=== PATIENT | male | born 2000 | race Caucasian/White ===

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

== ENCOUNTER → 2023-03-10 11:38 | Outpatient (BNVA) | payer BC, SELFPAY | PROVIDERS: Visit Provider Nurse Practitioner | DX: Z02.83 Encounter for blood-alcohol and blood-drug test (principal) | CPT/HCPCS: 80306 ==

== ENCOUNTER 2025-02-18 21:29 | Emergency (ER) | payer BC, SELFPAY ==
[2025-02-18 21:31] VITALS: BP 130/78; PULSE 74; RESP 18; TEMP 36.8; O2SAT 96; BMI 37.1
--- NOTE | 2025-02-18 21:42 | XRR_ITS ---
PROCEDURE INFORMATION: Exam: XR Chest Exam date and time: 02/18/2025 9:52 PM Age: 24 years old Clinical indication: Pain; Chest pressure; Additional info: Chest pain TECHNIQUE: Imaging protocol: Radiologic exam of the chest. Views: 1 view. COMPARISON: No relevant prior studies available. FINDINGS: Lungs: Unremarkable. No consolidation. Pleural spaces: Unremarkable. No pleural effusion. No pneumothorax. Heart/Mediastinum: Unremarkable. No cardiomegaly. Bones/joints: Old left clavicle fracture. XR/XR chest 1V portable [id number] IMPRESSION: No acute findings.
--- NOTE | 2025-02-18 21:46 | ECG_ITS ---
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
--- NOTE | 2025-02-18 21:47 | PC.NURSE ---
EKG obtained in triage did not save into EKG machine.
[2025-02-18 21:49] VITALS: BP 134/85; PULSE 73; RESP 16; O2SAT 98
[2025-02-18 21:55] LABS: Basophils % 0.4 %; Eosinophils # 0.1 10^3/uL (0.0-0.8); Hematocrit 45.5 % (37-53); Lymphocytes # 3.9 10^3/uL (0.8-4.8); Lymphocytes % 34.5 %; Mean Corpuscular HGB Conc 32.7 g/dL (30-55); Mean Corpuscular Hemoglobin 28.2 pg (27-33); Mean Corpuscular Volume 86.2 fl (82-101); Mean Platelet Volume 9.8 fL (7.4-10.4); Monocytes # 1.3 10^3/uL (0.2-0.9); Monocytes % 11.3 %; Neutrophils # 5.91 10^3/uL (1.8-7.7); Neutrophils % 52.5 %; Nucleated Red Blood Cells % 0 %; Platelet Count 459 10^3/cmm (157-399); Red Blood Count 5.28 10^6/uL (3.85-5.65); Red Cell Distribution Width 14.1 % (12.1-15.1); White Blood Count 11.24 10^3/uL (3.29-11.43)
--- NOTE | 2025-02-18 21:56 | ED_ITS ---
HPI - Chest Pain 2 General: Chief Complaint: Chest Pain Stated Complaint: CP SOB L Arm numb N Time Seen by Provider: 02/18/25 21:42 History of Present Illness: Patient is a 24-year-old gentleman with history of hypertension, compliant to amlodipine, that presented to ED due to chest pain. This occurred earlier today as well, and patient was seen at [facility], and improved with nitroglycerin at facility. This is associated with shortness of breath. There is no nausea, or vomiting. He has had 324 mg of aspirin today. Patient does not have early heart disease in his family history, however dad has history of thrombosis of unknown origin. 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 No recent surgery, no oncological issues. Associated symptoms: Deny abdominal pain, dyspnea, fever(s), nausea, palpitations or vomiting Related Data Previous Rx's ?Medication ?Instructions ?Recorded dextroamphetamine-amphetamine ER 15 mg PO DAILY 30 day s #30 caps 05/23/23 15 mg 24hr capsule,extend release (Adderall XR) dextroamphetamine-amphetamine ER 15 mg PO DAILY 30 day s #30 caps 07/10/23 15 mg 24hr capsule,extend release (Adderall XR) sertraline 100 mg tablet (Zoloft) 100 mg PO DAILY #30 tabs 07/10/23 trazodone 100 mg tablet 100 mg PO .HS #30 tabs 07/10 Allergies Allergy/AdvReac Type Severity Reaction Status Date / Time No Known Allergies Allergy Unverified 05/23/23 14:52 Review of Systems 2 General: Reports: 10 or more systems reviewed and unremarkable except in HPI and below Const: Denies: fever(s), chills, fatigue or malaise Card: Reports: chest pain; Denies: palpitations, lightheadedness or leg pain with exertion (right ankle injury 1 month ago) Resp: Denies: dyspnea or productive cough GI: Denies: abdominal pain, nausea or vomiting : Denies: flank pain or difficulty urinating Musc: Denies: neck pain, back pain, extremity pain or muscle cramps Skin/Breast: Denies: rash or pruritus Neuro: Denies: headache(s) or numbness in extremities Psych: Denies: anxiety or depression Endo: Denies: polydipsia or tired all the time Abdirahman/Lymph: Reports: easy bleeding; Denies: easy bruising PFSH ED 2 PFSH: Medical History ADHD, predominantly inattentive type Major depressive disorder, recurrent, moderate Generalized anxiety disorder Insomnia Vapes nicotine containing substance Physical Exam 2 Const: COMMON NORMALS: patient oriented x3 HENMT: COMMON NORMALS: normocephalic and atraumatic HEAD & SCALP: n ormocephalic and atraumatic Chest: COMMONS NORMALS: normal inspection of the chest CHEST: Yes Symmetrical chest wall rise and No tenderness Resp: COMMON NORMALS: normal respiratory effort and clear to auscultation bilaterally EFFORT & INSPECTION: Yes able to speak in complete sentences and No abnormal respiratory pattern AUSCULTATION: clear to auscultation bilaterally Cardio: COMMON NORMALS: regular rate, regular rhythm, S1 normal heart sound present, S2 normal heart sound present and Peripheral pulses 2+ throughout R ATE: regular rate RHYTHM: regular rhythm HEART SOUNDS: S1 normal heart sound present, S2 normal heart sound present and Murmur heart sound present (3/6) systolic PERIPHERAL PULSES: Peripheral pulses 2+ throughout GI: COMMON NORMALS: Normal to inspection, nondistended, normoactive bowel sounds present, Soft to palpation and non-tender PALPATION: Yes Soft to palpation : COMMON NORMALS: Yes no CVA tenderness BLADDER/KIDNEY EXAM: Yes no CVA tenderness Back/Pelvis: COMMON NORMALS: no CVA tenderness Extremity: COMMON NORMALS: normal to inspection, full ROM and capillary refill normal Neuro: COMMON NORMALS: patient oriented x3 and CN's II-XII intact bilaterally Psych: COMMON NORMALS: mental status grossly normal Skin: COMMON NORMALS: no rashes or lesions noted and no wounds GENERAL SKIN EXAM: no rashes or lesions noted Course 2 Vital Signs: Vital signs: Vital Signs Temperature 98.2 F 02/18/25 21:31 Pulse Rate 66 02/18/25 23:35 Respiratory Rate 16 02/18/25 23:35 Blood Pressure 134/78 02/18/25 23:35 Pulse Oximetry 98 02/18/25 23:35 Oxygen Delivery Me thod Room Air 02/18/25 21:31 MDM - Chest Pain Medical Decision Making Patient is a 24-year-old male without cardiac history, that was seen earlier today at clinic for chest pain, and ruled out for acute etiology. He continued to have a sharp stabbing pain. He has risk factors for pulmonary embolism, however Wells PE score is 1. Will obtain a D-dimer initially, and see if this needs to be expanded to his CT of the chest. He does not have reproducible chest pain. No ischemic changes noted on initial EKG. Will obtain routine labs, and consider differentials including costochondritis, hypertension, although his blood pressure is not elevated on current vital signs, viral illness, however no complaints of recent illness or sick contact. EKG without any acute changes, initial workup is negative for acute changes, and D-dimer is negative. Discussed with patient, suspect association of costochondritis versus blood pressure, and factor of increased stress from work/school. Patient will be off for 1 week, follow DASH diet, continue his medications/amlodipine that is not on his profile, for which patient is compliant. He will return to ED for further issues. There is no need to write for nitroglycerin at this time, given very little concern for reversible ischemia at this time. Suspect that his chest pain improved with nitroglycerin since his blood pressure decreased. Lab Data 02/18/25 21:46 02/18/25 21:46 Radiology Impressions Chest X-Ray 02/18/25 21:42 IMPRESSION: No acute findings. Laboratory Results WBC 11.24 10^3/uL (3.29-11.43) 02/18/25 21:46 RBC 5.28 10^6/uL (3.85-5.65) 02/18/25 21:46 Hgb 14.90 g/dL (11.27-16.99) 02/18/25 21:46 Hct 45.5 % (37-53) 02/18/25 21:46 MCV 86.2 fl (82-101) 02/18/25 21:46 MCH 28.2 pg (27-33) 02/18/25 21:46 MCHC 32.7 g/dL (30-55) 02/18/25 21:46 RDW 14.1 % (12.1-15.1) 02/18/25 21:46 Plt Count 459 10^3/cmm (157-399) H 02/18/25 21:46 MPV 9.8 fL (7.4-10.4) 02/18/25 21:46 Neut % (Auto) 52.5 % 02/18/25 21:46 Lymph % (Auto) 34.5 % 02/18/25 21:46 [place] % (Auto) 11.3 % 02/18/25 21:46 Eos % (Auto) 1.0 % 02/18/25 21:46 Baso % (Auto) 0.4 % 02/18/25 21:46 Neut # (Auto) 5.91 10^3/uL (1.8-7.7) 02/18/25 21:46 Lymph # (Auto) 3.9 10^3/uL (0.8-4.8) 02/18/25 21:46 [place] # (Auto) 1.3 10^3/uL (0.2-0.9) H 02/18/25 21:46 Eos # (Auto) 0.1 10^3/uL (0.0-0.8) 02/18/25 21:46 Baso # (Auto) 0.0 10^3/uL (0.0-0.1) 02/18/25 21:46 Nucleated RBC % (auto) 0 % 02/18/25 21:46 Nucleated RBCs # 0.0 /100WBC 02/18/25 21:46 D-Dimer <= 0.27 ug/mLFEU (0-0.59) 02/18/25 21:46 Sodium 142 mmol/L (136-145) 02/18/25 21:46 Potassium 4.1 mmol/L (3.5-5.1) 02/18/25 21:46 Chloride 107 mmol/L (98-107) 02/18/25 21:46 Carbon Dioxide 22 mmol/L (22-29) 02/18/25 21:46 Anion Gap 17.1 (5-19) 02/18/25 21:46 BUN 12 mg/dL (6-20) 02/18/25 21:46 Creatinine 0.9 mg/dL (0.7-1.2) 02/18/25 21:46 GFR Calculation 105.5 mL/min (90-130) 02/18/25 21:46 Glucose 92 mg/dL (65-115) 02/18/25 21:46 Calculated Osmolality 293 mOsm/kg (285-295) 02/18/25 21:46 Calcium 9.3 mg/dL (8.5-10.5) 02/18/25 21:46 Total Bilirubin 0.3 mg/dL (0.15-1.2) 02/18/25 21:46 AST 49 U/L (0-40) H 02/18/25 21:46 ALT 36 U/L (0-41) 02/18/25 21:46 Alkaline Phosphatase 81 U/L (40-130) 02/18/25 21:46 Troponin T Baseline < 6 ng/L (0-15) 02/18/25 21:46 Troponin T 120 Minute < 6.0 ng/L (0-15) 02/18/25 23:25 Delta Troponin T 0 ABS# (0-10) 02/18/25 23: Total Protein 7.2 g/dL (6.6-8.7) 02/18/25 21:46 Albumin 4.4 g/dL (3.5-5.2) 02/18/25 21:46 Globulin 2.8 g/dL (1.3-4.6) 02/18/25 21:46 All radiology interpretation(s) finalized by discharge ED provider radiology interpretation(s): no acute EKG Data EKG 2: Interpretation: Normal sinus rhythm with rate of 59, QTc 382, left axis Computer generated interpretation: Sinus bradycardia, borderline EKG Discharge Plan Discharge Patient Disposition: Home Clinical Impression: Atypical chest pain Condition: Stable Prescriptions: No Action dextroamphetamine-amphetamine [Adderall XR] 15 mg capsule,extended release 24hr 15 mg PO DAILY 30 Days Qty: 30 0RF sertraline [Zoloft] 100 mg tablet 100 mg PO DAILY Qty: 30 2RF trazodone 100 mg tablet 100 mg PO .HS Qty: 30 1RF dextroamphetamine-amphetamine [Adderall XR] 15 mg capsule,extended release 24hr 15 mg PO DAILY 30 Days Qty: 30 0RF Discharge Orders: Discharge ED (Routine); Ordered 02/19/25 Ordered By: Shelly Holly Referrals: Jass Banda MD [Family Provider, Pediatrics] Discharge Diet: Usual diet and Low Salt Discharge Activity: Resume usual activity Patient Instructions: Chest Pain (ED), DASH Eating Plan (ED) Activity Restrictions/Additional Instructions: Off work x 1 week. Return to ED for further issues with chest pain. On this workup, you do not have any association of cardiac blockage, dissecting aneurysm, or blood clot. Call Friday?your doctor for appointment for follow-up Follow the DASH diet, which will help lower your blood pressure in a natural way You may use Tylenol for pain. Stand Alone Forms: Work/School Release Print Language: [place] Arabian Coding Level of Care Code ED Trust Evaluation Supervisor for Jerome Abdi
[2025-02-18 22:01] VITALS: BP 128/78; PULSE 79; RESP 16; O2SAT 96
[2025-02-18 22:09] LABS: D Dimer <= 0.27 ug/mLFEU (0-0.59)
[2025-02-18 22:11] LABS: Troponin(5th) Baseline < 6 ng/L (0-15)
[2025-02-18 22:14] LABS: Alanine Aminotransferase 36 U/L (0-41); Albumin Level 4.4 g/dL (3.5-5.2); Alkaline Phosphatase 81 U/L (40-130); Aspartate Amino Transferase 49 U/L (0-40); Blood Urea Nitrogen 12 mg/dL (6-20); Calcium 9.3 mg/dL (8.5-10.5); Carbon Dioxide 22 mmol/L (22-29); Chloride 107 mmol/L (98-107); Creatinine Clr Calc Pharmacy 155.4941; Globulin 2.8 g/dL (1.3-4.6); Glomerular Filtration Rate 105.5 mL/min (90-130); Glucose 92 mg/dL (65-115); Osmolality Calculated 293 mOsm/kg (285-295); Sodium 142 mmol/L (136-145); Total Bilirubin 0.3 mg/dL (0.15-1.2); Total Protein 7.2 g/dL (6.6-8.7)
[2025-02-18 22:22] LABS: Anion Gap 17.1 (5-19); Potassium 4.1 mmol/L (3.5-5.1)
[2025-02-18 23:06] VITALS: BP 139/80; PULSE 59; RESP 16; O2SAT 95
[2025-02-18 23:35] VITALS: BP 134/78; PULSE 66; RESP 16; O2SAT 98
--- NOTE | 2025-02-18 23:39 | ECG_ITS ---
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
[2025-02-18 23:50] LABS: Troponin 5 2HR < 6.0 ng/L (0-15); Troponin 5 2HR Delta 0 ABS# (0-10)
[2025-02-19 00:02] VITALS: BP 131/78; PULSE 65; RESP 16; O2SAT 97
== END 2025-02-19 00:07 | disposition home or self-care (01) ==
PROVIDERS: Emergency Provider Physician Assistant
DX: R07.89 Other chest pain (principal); I10 Essential (primary) hypertension; F17.290 Nicotine dependence, other tobacco product, uncomplicated; Z79.899 Other long term (current) drug therapy
CPT/HCPCS: 36415; 71045; 80053; 84484; 85025; 85378; 93005; 99285

== ENCOUNTER 2025-03-22 12:04 | Outpatient (CLI) | payer OTHER, SELFPAY ==
--- NOTE | 2025-03-22 | ECG_ITS ---
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 Interpretive Statements EXERCISE STRESS TEST EXERCISE DATA: The patient was exercised by Jam protocol. Baseline heart rate was 82 beats per minute. Baseline blood pressure was 128/66 millimeters of mercury. Maximal predicted heart rate was 198 beats per minute. Maximum heart rate achieved was 179 which was 90% of the maximum predicted heart rate. Maximum blood pressure was 177/59 millimeters of mercury. Total exercise time was 6 minutes and 41 seconds. Maximum METs achieved was 10.2. The reason for ending the test was maximal effort achieved. The patient complained of shortness of breath during the stress test, which then resolved at the end of the test. ELECTROCARDIOGRAM: BASELINE: Showed sinus rhythm, normal axis, no significant ST-T changes at the baseline noted. [] EXERCISE: At the peak exercise level, [] No significant ST-T changes suggestive of ischemia noted. [] RECOVERY: During the recovery period, heart rate dropped appropriately. No significant ST-T changes in the recovery suggestive of ischemia noted. [] CONCLUSION: 1. Exercise capacity is good. 2. Heart rate response was appropriate 3. Blood pressure response was appropriate 4. Symptoms not suggestive of ischemia. 5. Stress test was not suggestive of ischemia. Electronically Signed On 04-09-2025 13:42:36 CDT by Suresh Riley M.D. [email or web address] [id number]
[2025-03-22 12:36] VITALS: BMI 37.7
[2025-03-22 12:46] VITALS: BP 141/68; PULSE 100
[2025-03-22 13:04] LABS: Basophils # 0.1 10^3/uL (0.0-0.1); Basophils % 0.8 %; Eosinophils # 0.6 10^3/uL (0.0-0.8); Eosinophils % 5.2 %; Hematocrit 48.5 % (37-53); Lymphocytes % 34.7 %; Mean Corpuscular HGB Conc 32.8 g/dL (30-55); Mean Corpuscular Hemoglobin 28.9 pg (27-33); Mean Corpuscular Volume 88.2 fl (82-101); Mean Platelet Volume 9.9 fL (7.4-10.4); Monocytes # 1.1 10^3/uL (0.2-0.9); Neutrophils # 5.53 10^3/uL (1.8-7.7); Neutrophils % 48.4 %; Nucleated Red Blood Cells % 0 %; Platelet Count 455 10^3/cmm (157-399); White Blood Count 11.43 10^3/uL (3.29-11.43)
[2025-03-22 13:20] LABS: Estmated Average Glucose 114; Hemoglobin A1C 5.6 % (4.0-6.0)
[2025-03-22 13:24] LABS: Alanine Aminotransferase 37 U/L (0-41); Albumin Level 4.5 g/dL (3.5-5.2); Alkaline Phosphatase 76 U/L (40-130); Anion Gap 18.3 (5-19); Aspartate Amino Transferase 19 U/L (0-40); Blood Urea Nitrogen 12 mg/dL (6-20); Calcium 9.4 mg/dL (8.5-10.5); Carbon Dioxide 24 mmol/L (22-29); Chloride 101 mmol/L (98-107); Chol HDL Ratio 3.22 mg/dL (1.0-5.00); Cholesterol 164 mg/dL (0-200); Globulin 3.2 g/dL (1.3-4.6); Glomerular Filtration Rate 120.9 mL/min (90-130); Glucose 86 mg/dL (65-115); HDL Cholesterol 51 mg/dL (60-100); LDL Cholesterol Calculated 98 mg/dL (50-129); LDL HDL Ratio 1.92 RATIO (0.00-3.22); Osmolality Calculated 287 mOsm/kg (285-295); Potassium 4.3 mmol/L (3.5-5.1); Sodium 139 mmol/L (136-145); Total Bilirubin 0.3 mg/dL (0.15-1.2); Total Protein 7.7 g/dL (6.6-8.7); Triglycerides 77 mg/dL (0-150)
== END 2025-03-22 12:05 | disposition home or self-care (01) ==
PROVIDERS: PCP Internal Medicine Cardiovascular Disease; Visit Provider Internal Medicine Cardiovascular Disease
DX: R07.9 Chest pain, unspecified (principal); R73.9 Hyperglycemia, unspecified
CPT/HCPCS: 36415; 80053; 80061; 83036; 85025; 93017

== ENCOUNTER 2025-04-03 21:01 | Emergency (ER) | payer OTHER, SELFPAY ==
--- NOTE | 2025-04-03 21:04 | XRR_ITS ---
PROCEDURE INFORMATION: Exam: XR Chest Exam date and time: 04/03/2025 10:18 PM Age: 24 years old Clinical indication: Chest pressure; C/O chest pain TECHNIQUE: Imaging protocol: Radiologic exam of the chest. Views: 1 view. COMPARISON: CR (CHEST, ) 02/18/2025 9:52 PM FINDINGS: Lungs: Unremarkable. No consolidation. Pleural spaces: Unremarkable. No pleural effusion. No pneumothorax. Heart/Mediastinum: Unremarkable. No cardiomegaly. Bones/joints: Unremarkable. XR/XR chest 1V portable [id number] IMPRESSION: No acute findings.
--- NOTE | 2025-04-03 21:04 | ECG_ITS ---
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
[2025-04-03 21:15] VITALS: BP 130/71; PULSE 83; RESP 16; TEMP 36.8; O2SAT 94; BMI 37.8
[2025-04-03 21:49] LABS: Glucose Urine UA Negative (Normal); Nitrate Urine Negative (Negative); Specific Gravity, Urine 1.014 (1.005-1.030)
[2025-04-03 21:54] LABS: Add Urine Microscopic? YES
[2025-04-03 22:12] LABS: Hematocrit 45.6 % (37-53); Hemoglobin 14.90 g/dL (11.27-16.99); Mean Corpuscular HGB Conc 32.7 g/dL (30-55); Mean Corpuscular Hemoglobin 28.1 pg (27-33); Mean Corpuscular Volume 85.9 fl (82-101); Nucleated Red Blood Cells % 0 %; Platelet Count 428 10^3/cmm (157-399); Red Blood Count 5.31 10^6/uL (3.85-5.65); White Blood Count 11.18 10^3/uL (3.29-11.43)
[2025-04-03 22:27] LABS: Troponin(5th) Baseline < 6 ng/L (0-15)
--- NOTE | 2025-04-03 22:37 | ED_ITS ---
HPI - Chest Pain 2 General: Chief Complaint: Chest Pain Stated Complaint: CP SOB dizzy weakness numbness down left Time Seen by Provider: 04/03/25 22:19 Source: patient Mode of arrival: ambulatory Limitations: no limitations History of Present Illness: 24yo male presents with significant othe r for evaluation of an episode of chest pain that was immediately followed by approximately 10 minutes of vomiting. Patient reports the pain is now resolved. States that it came on all of a sudden at approximately 2030 this evening. States he did have a stress test completed approximately 2 weeks ago, but has not received the results. States that he also had blood work completed 2 weeks ago, but does not have results yet. He states he is feeling perfectly fine now and is ready to go home. He has not been taking any of his home medications due to monetary concerns. Patient states that he does vape and has been smoking since the age of 12 Associated symptoms: Reports vomiting (Resolved); Deny abdominal pain, dyspnea, fever(s) or nausea Related Data Previous Rx's ?Medication ?Instructions ?Recorded dextroamphetamine-amphetamine ER 15 mg PO DAILY 30 day s #30 caps 05/23/23 15 mg 24hr capsule,extend release (Adderall XR) dextroamphetamine-amphetamine ER 15 mg PO DAILY 30 day s #30 caps 07/10/23 15 mg 24hr capsule,extend release (Adderall XR) sertraline 100 mg tablet (Zoloft) 100 mg PO DAILY #30 tabs 07/10/23 trazodone 100 mg tablet 100 mg PO .HS #30 tabs 07/10 Allergies Allergy/AdvReac Type Severity Reaction Status Date / Time No Known Allergies Allergy Verified 04/03/25 21:19 Review of Systems 2 Const: Denies: fever(s) or body aches Card: Reports: chest pain (Resolved) Resp: Denies: dyspnea GI: Reports: vomiting (Resolved); Denies: abdominal pain or nausea PFSH ED 2 PFSH: Medical History ADHD, predominantly inattentive type Major depressive disorder, recurrent, moderate Generalized anxiety disorder Insomnia Vapes nicotine containing substance Social History (Updated 03/07/25 @ 14:06 by Neli Albright LPN) Smoking and tobacco/nicotine status: current every day tobacco/nicotine user Second hand smoke exposure: No Alcohol intake: current Substance/Drug Use: never Caregiver/support person: No Lives independently: Yes Household members: significant other and children Housing: Manufactured/Mobile home Number of children: 1 Highest education level completed: High School Graduate service: No Current occupational status: employed Current occupation: trade school student [employer] Current occupational exposures/hazards: No Pets and animals: Yes Do you think of yourself as: Straight/Heterosexual Current gender identity: Male Special liss needs: No Agree to transfusion: Yes Physical Exam 2 Const: COMMON NORMALS: no acute distress, patient oriented x3 and alert G ENERAL APPEARANCE: cooperative ORIENTATION/CONSCIOUSNESS: Yes awake OTHER: Patient is ambulatory to the exam room unassisted. He is sitting upright on the stretcher no acute distress. He is able to give history with no difficulty. He is interactive with exam appropriately. Family is at bedside HENMT: COMMON NORMALS: normocephalic and atraumatic HEAD & SCALP: n ormocephalic and atraumatic Neck/C-Spine: COMMON NORMALS: full ROM Chest: CHEST: Yes Symmetrical chest wall rise Resp: COMMON NORMALS: normal respiratory effort, No use of accessory muscles and clear to auscultation bilaterally EFFORT & INSPECTION: Yes able to speak in complete sentences AUSCULTATION: clear to auscultation bilaterally Cardio: COMMON NORMALS: regular rate and regular rhythm RATE: regular rate RHYTHM: regular rhythm Back/Pelvis: COMMON NORMALS: no thoracic nor lumbar tenderness Extremity: COMMON NORMALS: full ROM Neuro: COMMON NORMALS: patient oriented x3 SENSORIUM/ORIENTATION: Yes alert Psych: COMMON NORMALS: cooperative Course 2 Vital Signs: Vital signs: Vital Signs Temperature 98.3 F 04/03/25 21:15 Pulse Rate 68 04/04/25 01:00 Respiratory Rate 20 H 04/04/25 01:00 Blood Pressure 126/83 04/04/25 01:00 Pulse Oximetry 95 04/04/25 01:00 Oxygen Delivery Me thod Room Air 04/03/25 23:12 MDM - Chest Pain Medical Decision Making 24yo male here with significant other for evaluation of chest pain and vomiting that occurred at 2030 this evening. Patient reports that he recently had a cardiac stress test as well as blood work about 2 weeks ago, but has not yet received his results. Patient states that he is feeling fine now and is ready to go home. He denies any other concerns at this time. Patient is nontoxic in appearance. Vital signs are stable. No leukocytosis, white blood cell count is in the normal range. No indication of anemia. Platelets are elevated at 428, improved from previous of 455 and 459 over the past 2 months. No electrolyte, renal, or hepatic abnormalities noted. Baseline troponin is less than 6 with a 2-hour troponin less than 6. EKGs are grossly unremarkable. Chest x-ray with no acute abnormalities noted. Discussed these findings with patient. Recommend he follow-up with primary care/cardiology, call in the next couple of days with an update of symptoms and to discuss a recheck. Return precautions provided. Patient states understanding and has no further questions or concerns at this time. Medical Records I reviewed the patient's medical records. Lab Data I reviewed the patient's lab results. 04/03/25 22:04 04/03/25 22:04 Radiology Impressions Chest X-Ray 04/03/25 21:04 IMPRESSION: No acute findings. Laboratory Results WBC 11.18 10^3/uL (3.29-11.43) 04/03/25 22:04 RBC 5.31 10^6/uL (3.85-5.65) 04/03/25 22:04 Hgb 14.90 g/dL (11.27-16.99) 04/03/25 22:04 Hct 45.6 % (37-53) 04/03/25 22:04 MCV 85.9 fl (82-101) 04/03/25 22:04 MCH 28.1 pg (27-33) 04/03/25 22:04 MCHC 32.7 g/dL (30-55) 04/03/25 22:04 RDW 13.4 % (12.1-15.1) 04/03/25 22:04 Plt Count 428 10^3/cmm (157-399) H 04/03/25 22:04 MPV 9.8 fL (7.4-10.4) 04/03/25 22:04 Neut % (Auto) 48.1 % 04/03/25 22:04 Lymph % (Auto) 36.8 % 04/03/25 22:04 [place] % (Auto) 11.1 % 04/03/25 22:04 Eos % (Auto) 3.0 % 04/03/25 22:04 Baso % (Auto) 0.5 % 04/03/25 22:04 Neut # (Auto) 5.38 10^3/uL (1.8-7.7) 04/03/25 22:04 Lymph # (Auto) 4.1 10^3/uL (0.8-4.8) 04/03/25 22:04 [place] # (Auto) 1.2 10^3/uL (0.2-0.9) H 04/03/25 22:04 Eos # (Auto) 0.3 10^3/uL (0.0-0.8) 04/03/25 22:04 Baso # (Auto) 0.1 10^3/uL (0.0-0.1) 04/03/25 22:04 Nucleated RBC % (auto) 0 % 04/03/25 22:04 Nucleated RBCs # 0.0 /100WBC 04/03/25 22:04 Sodium 137 mmol/L (136-145) 04/03/25 22:04 Potassium 4.4 mmol/L (3.5-5.1) 04/03/25 22:04 Chloride 101 mmol/L (98-107) 04/03/25 22:04 Carbon Dioxide 23 mmol/L (22-29) 04/03/25 22:04 Anion Gap 17.4 (5-19) 04/03/25 22:04 BUN 11 mg/dL (6-20) 04/03/25 22:04 Creatinine 0.8 mg/dL (0.7-1.2) 04/03/25 22:04 GFR Calculation 120.9 mL/min (90-130) 04/03/25 22:04 Glucose 87 mg/dL (65-115) 04/03/25 22:04 Calculated Osmolality 283 mOsm/kg (285-295) L 04/03/25 22:04 Calcium 9.9 mg/dL (8.5-10.5) 04/03/25 22:04 Total Bilirubin 0.2 mg/dL (0.15-1.2) 04/03/25 22:04 AST 20 U/L (0-40) 04/03/25 22:04 ALT 37 U/L (0-41) 04/03/25 22:04 Alkaline Phosphatase 76 U/L (40-130) 04/03/25 22:04 Troponin T Baseline < 6 ng/L (0-15) 04/03/25 22:04 Troponin T 120 Minute < 6.0 ng/L (0-15) 04/04/25 00:02 Delta Troponin T 0 ABS# (0-10) 04/04/25 00:02 Total Protein 7.3 g/dL (6.6-8.7) 04/03/25 22:04 Albumin 4.4 g/dL (3.5-5.2) 04/03/25 22:04 Globulin 2.9 g/dL (1.3-4.6) 04/03/25 22:04 Urine Color Yellow (Yellow) 04/03/25 21:32 Urine Appearance Clear (CLEAR) 04/03/25 21:32 Urine pH 6.5 (5-7) 04/03/25 21:32 Ur Specific [place] 1.014 (1.005-1.030) 04/03/25 21:32 Urine Protein Negative (Negative) 04/03/25 21:32 Urine Glucose (UA) Negative (Normal) 04/03/25 21:32 Urine Ketones Negative (Negative) 04/03/25 21:32 Urine Blood Negative (Negative) 04/03/25 21:32 Urine Nitrate Negative (Negative) 04/03/25 21:32 Urine Bilirubin Negative (Negative) 04/03/25 21:32 Urine Urobilinogen 1.0 mg/dL (Negative) 04/03/25 21:32 Ur Leukocyte Esterase Negative (Negative) 04/03/25 21:32 Urine RBC 0-2 /hpf (0-2) 04/03/25 21:32 Urine WBC 0-5 /hpf (0-5) 04/03/25 21:32 Ur Squamous Epith Cells 0-5 /hpf (0-5) 04/03/25 21:32 Amorphous Sediment Not Reportable 04/03/25 21:32 Urine Bacteria None seen /hpf (NONE) 04/03/25 21:32 Hyaline Casts 0-4 /lpf H 04/03/25 21:32 All radiology interpretation(s) finalized by discharge Discharge Plan Discharge Patient Disposition: Home Clinical Impression: Chest pain Qualifiers: Chest pain type: unspecified Qualified Code(s): R07.9 - Chest pain, unspecified Condition: Stable Prescriptions: No Action dextroamphetamine-amphetamine [Adderall XR] 15 mg capsule,extended release 24hr 15 mg PO DAILY 30 Days Qty: 30 0RF sertraline [Zoloft] 100 mg tablet 100 mg PO DAILY Qty: 30 2RF trazodone 100 mg tablet 100 mg PO .HS Qty: 30 1RF dextroamphetamine-amphetamine [Adderall XR] 15 mg capsule,extended release 24hr 15 mg PO DAILY 30 Days Qty: 30 0RF Discharge Orders: Discharge ED (Routine); Ordered 04/04/25 Ordered By: Jt Shaffer Referrals: Loy Ignacio MD [Primary Care Provider, Cardiology] Jass Banda MD [Family Provider, Pediatrics] Discharge Diet: Usual diet Discharge Activity: Increase activity as tolerated Patient Instructions: Chest Pain (ED), Pain Management, Patient Portal & Bianca Instructions Activity Restrictions/Additional Instructions: No acute abnormalities noted on your EKGs or on your troponins tonight Continue to monitor your symptoms closely Follow-up with your onsite case manager and/or primary care, call in the next few days with an update of symptoms and to discuss a recheck. Return to the emergency department if any rapid worsening symptoms and as needed Print Language: Chinese Coding Level of Care Code ED Bar Staff for Jerome Abdi
[2025-04-03 22:38] LABS: Alanine Aminotransferase 37 U/L (0-41); Albumin Level 4.4 g/dL (3.5-5.2); Alkaline Phosphatase 76 U/L (40-130); Anion Gap 17.4 (5-19); Aspartate Amino Transferase 20 U/L (0-40); Blood Urea Nitrogen 11 mg/dL (6-20); Calcium 9.9 mg/dL (8.5-10.5); Carbon Dioxide 23 mmol/L (22-29); Chloride 101 mmol/L (98-107); Creatinine Clr Calc Pharmacy 176.6272; Globulin 2.9 g/dL (1.3-4.6); Glucose 87 mg/dL (65-115); Osmolality Calculated 283 mOsm/kg (285-295); Potassium 4.4 mmol/L (3.5-5.1); Sodium 137 mmol/L (136-145); Total Protein 7.3 g/dL (6.6-8.7)
--- NOTE | 2025-04-03 23:04 | ECG_ITS ---
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
[2025-04-03 23:12] VITALS: BP 132/77; PULSE 69; RESP 20; O2SAT 95
[2025-04-04 00:23] LABS: Troponin 5 2HR < 6.0 ng/L (0-15); Troponin 5 2HR Delta 0 ABS# (0-10)
[2025-04-04 01:00] VITALS: BP 126/83; PULSE 68; RESP 20; O2SAT 95
== END 2025-04-04 01:02 | disposition home or self-care (01) ==
PROVIDERS: Emergency Medicine; Physician Assistant; Emergency Provider Nurse Practitioner; PCP Internal Medicine Cardiovascular Disease
DX: R07.9 Chest pain, unspecified (principal); Z72.0 Tobacco use
CPT/HCPCS: 36415; 71045; 80053; 81001; 84484; 85025; 93005; 93010; 99285